=== PATIENT | female | born 1995 | race Hispanic/Latino ===

== ENCOUNTER 2024-03-26 00:46 | Emergency (ER) | payer OTHER ==
[~2024-03-26] VITALS: Ht 160 cm; Wt 97.5 kg
[2024-03-26 00:48] VITALS: TEMP 98.3
[2024-03-26 01:43] VITALS: PULSE 97; RESP 17
[2024-03-26] MEDS ORDERED: NAPROSYN500 MG PO (03:27)
[2024-03-26] MEDS ORDERED: CYCLOBENZAPRINE5 MG PO (03:27)
[2024-03-26] MEDS: ORPHENADRINE CITRATE 30 MG/ML VIAL IM ONE (03:37)
[2024-03-26] MEDS: KETOROLAC TROMETHAMINE 60 MG/2 ML VIAL IM ONE (03:38)
[2024-03-26 04:16] VITALS: BP 139/82; PULSE 80; RESP 16; TEMP 98.5; O2SAT 100
== END 2024-03-26 04:10 | disposition home or self-care (01) ==
LOC: ER 00:55
DX: S16.1XXA Strain of muscle, fascia and tendon at neck level, initial encounter (principal); S20.212A Contusion of left front wall of thorax, initial encounter; M25.512 Pain in left shoulder; R51.9 Headache, unspecified; W18.2XXA Fall in (into) shower or empty bathtub, initial encounter; Y93.E1 Activity, personal bathing and showering; Y92.89 Other specified places as the place of occurrence of the external cause; I10 Essential (primary) hypertension; J45.909 Unspecified asthma, uncomplicated; E66.9 Obesity, unspecified; M79.7 Fibromyalgia; F41.9 Anxiety disorder, unspecified
CPT/HCPCS: 70450; 71250; 72125; 73030; 73502; 81025; 99284; J1885; J2360